=== PATIENT | female | born 1960 | race Caucasian/White ===

== ENCOUNTER 2017-08-08 10:43 | Outpatient (CLI) | payer BC | END 2017-08-08 10:44 | disposition home or self-care (01) | LOC: BICMAMMO 10:43 | PROVIDERS: ATTEND Obstetrics & Gynecology | DX: N64.89 Other specified disorders of breast (principal); R92.1 Mammographic calcification found on diagnostic imaging of breast | CPT/HCPCS: 77066; G0279 ==

== ENCOUNTER 2018-04-23 20:30 | Outpatient (CLI) | payer BC | END 2018-04-23 20:31 | disposition home or self-care (01) | LOC: SLEEPLAB 20:30 | PROVIDERS: ATTEND Psychiatry & Neurology Neurology | DX: G47.33 Obstructive sleep apnea (adult) (pediatric) (principal) | CPT/HCPCS: 95811 ==

== ENCOUNTER 2021-11-17 14:25 | Outpatient (CLI) | payer BC | END 2021-11-17 14:26 | disposition home or self-care (01) | LOC: BICMAMMO 14:25 | PROVIDERS: ATTEND Obstetrics & Gynecology | DX: Z13.820 Encounter for screening for osteoporosis (principal); M85.80 Other specified disorders of bone density and structure, unspecified site | CPT/HCPCS: 77080 ==

== ENCOUNTER 2022-11-23 07:48 | Outpatient (CLI) | payer BC | END 2022-11-23 07:49 | disposition home or self-care (01) | LOC: BICMAMMO 07:48 | PROVIDERS: ATTEND Obstetrics & Gynecology | DX: R92.8 Other abnormal and inconclusive findings on diagnostic imaging of breast (principal); N60.42 Mammary duct ectasia of left breast | CPT/HCPCS: G0279 ==

== ENCOUNTER → 2022-11-29 | Day surgery (SDC) | payer BC | LOC: BICULT 12:36 | PROVIDERS: ATTEND Obstetrics & Gynecology | PROC: 0H95XZX Drainage of Chest Skin, External Approach, Diagnostic (ICD-10-PCS; principal; 2022-11-29) | DX: D24.2 Benign neoplasm of left breast (principal); N63.25 Unspecified lump in the left breast, overlapping quadrants | CPT/HCPCS: 19083; 88305; 88341; 88342 ==